=== PATIENT | female | born 1965 | race Caucasian/White ===

== ENCOUNTER → 2019-01-11 | Outpatient (REF) | payer OTHER | LOC: M LAB REF 13:39 | PROVIDERS: ATTEND Obstetrics & Gynecology | DX: R10.2 Pelvic and perineal pain (principal) ==

== ENCOUNTER 2019-02-16 05:48 | Day surgery (SDC) | payer OTHER ==
[~2019-02-16] VITALS: Ht 165.1 cm; Wt 107.7 kg
[2019-02-16] VITALS (8 sets, daily range): BP systolic 114–147; BP diastolic 61–77
[~2019-02-16 05:48] MED LIST: LEVO50TA5 PO
[2019-02-16] MEDS: LEVOTHYROXINE 100MCG TABLET (0.1MG) PO SCH (06:00)
[2019-02-16] MEDS ORDERED: LR 1,000 ML IV ONE (06:00)
[2019-02-16 06:19] LABS: HEMOGLOBIN 14.3 g/dl (12.0-15.5); MEAN CORPUSCULAR HEMOGLOBIN 32.1 pg (27.0-33.0); MEAN CORPUSCULAR HGB CONC 33.3 g/dl (32.0-36.5); MEAN CORPUSCULAR VOLUME 96.6 fl (80.0-96.0); PLATELET COUNT, AUTOMATED 258 10^3/uL (150-450); RED BLOOD COUNT 4.45 10^6/uL (4.00-5.40); WHITE BLOOD COUNT 6.6 10^3/uL (4.0-10.0)
[2019-02-16 06:47] LABS: HCG, SERUM QUALITATIVE NEGATIVE (NEGATIVE)
[2019-02-16] MEDS ORDERED: BUPIVACAINE HCL 0.25% 30 ML VIAL As Ordered ONE (07:08)
[2019-02-16] MEDS ORDERED: METHYLENE BLUE 0.5% (5MG/ML) 10 ML AMP (PROVAYBLUE)(Q9968 PER 1MG) As Ordered ONE (07:08)
[2019-02-16] MEDS ORDERED: ROCURONIUM BROMIDE 50 MG/5 ML VIAL As Ordered ONE ×2 (07:11→08:10)
[2019-02-16] MEDS ORDERED: ONDANSETRON 4MG/2ML VIAL (J2405) As Ordered ONE (07:11)
[2019-02-16] MEDS ORDERED: LIDOCAINE 2% INJ 100 MG/5 ML SDV (FOR ANES.) As Ordered ONE (07:11)
[2019-02-16] MEDS ORDERED: PROPOFOL 200 MG/20 ML VIAL As Ordered ONE (07:11)
[2019-02-16] MEDS ORDERED: dexameTHASONE 4 MG/ML 1ML VIAL (J1100) As Ordered ONE (07:11)
[2019-02-16] MEDS ORDERED: MIDAZOLAM INJ 2 MG/2 ML VIAL (J2250) As Ordered ONE (07:12)
[2019-02-16] MEDS ORDERED: fentaNYL 100 MCG/2 ML INJECTION (J3010) As Ordered ONE (07:12)
[2019-02-16] MEDS ORDERED: HYDROmorphone HCL 2 MG/ML 1ML VIAL (J1170) As Ordered ONE (07:17)
[2019-02-16] MEDS ORDERED: KETAMINE HCL 200 MG/20 ML VIAL As Ordered ONE (08:36)
[2019-02-16] MEDS ORDERED: KETOROLAC 60 MG/2 ML VIAL (J1885) As Ordered ONE (08:40)
[2019-02-16] MEDS ORDERED: SUGAMMADEX SODIUM 500 MG/5 ML VIAL (BRIDION) As Ordered ONE (08:40)
[2019-02-16] MEDS ORDERED: ACETAMINOPHEN 1000MG 100ML IV BTL (OFIRMEV) (J0131 PER 10MG) As Ordered ONE (09:13)
[2019-02-16] MEDS ORDERED: BACITRACIN OINT 30GM As Ordered ONE (09:48)
[2019-02-16] MEDS: LR 1,000 ML IV SCH ×2 (10:03→18:03)
[2019-02-16] MEDS ORDERED: PERCOCET 5MG/325MG TAB PO PRN ×3 (10:15→10:30)
[2019-02-16] MEDS ORDERED: PROMETHAZINE INJ 25 MG/ML VIAL (J2550) IV PRN (10:15)
[2019-02-16] MEDS ORDERED: ONDANSETRON 4MG/2ML VIAL (J2405) IV PRN ×2 (10:15→10:30)
[2019-02-16] MEDS ORDERED: HYDROMORPHONE HCL 0.5 MG/ 0.5 ML SYRINGE (J1170 PER 1) IV PRN (10:30)
[2019-02-16] MEDS ORDERED: fentaNYL 100 MCG/2 ML INJECTION (J3010) IV PRN (10:30)
[2019-02-16] MEDS ORDERED: LR 1,000 ML IV SCH (10:30)
[2019-02-16] MEDS: DOCUSATE SODIUM 100 MG CAP PO SCH ×2 (12:13→20:25)
[2019-02-16] MEDS: KETOROLAC 30 MG/ML VIAL (J1885) IV SCH ×2 (14:45→20:24)
[2019-02-17] VITALS: BP 99/51
[2019-02-17] MEDS: KETOROLAC 30 MG/ML VIAL (J1885) IV SCH (02:23)
[2019-02-17 04:00] VITALS: BP 114/61
[2019-02-17] MEDS: LEVOTHYROXINE 100MCG TABLET (0.1MG) PO SCH (05:39)
[2019-02-17 06:21] LABS: BASO % 0.1 % (0.0-1.0); HEMATOCRIT 38.7 % (36.0-47.0); HEMOGLOBIN 12.9 g/dl (12.0-15.5); LYMPH # 1.2 10^3/uL (1.5-4.5); LYMPH % 8.8 % (24.0-44.0); MEAN CORPUSCULAR HEMOGLOBIN 31.9 pg (27.0-33.0); MEAN CORPUSCULAR HGB CONC 33.3 g/dl (32.0-36.5); MEAN CORPUSCULAR VOLUME 95.8 fl (80.0-96.0); NEUTROPHILS # 11.7 10^3/uL (1.8-7.7); NEUTROPHILS % 83.6 % (36.0-66.0); PLATELET COUNT, AUTOMATED 245 10^3/uL (150-450); RED BLOOD COUNT 4.04 10^6/uL (4.00-5.40)
[2019-02-17 08:00] VITALS: BP 122/61
[2019-02-17] MEDS: DOCUSATE SODIUM 100 MG CAP PO SCH (08:02)
[2019-02-17] MEDS ORDERED: IBUP80TA PO (10:23)
[2019-02-17] MEDS ORDERED: PERCOCET PO (10:23)
[2019-02-17] MEDS ORDERED: COLA100C5 PO (10:23)
[2019-02-17] MEDS ORDERED: IBUPROFEN 800 MG TAB PO SCH (11:00)
== END 2019-02-17 10:55 | disposition home or self-care (01) ==
LOC: M SDC 05:48 → M PED 11:10 → M SDC 02-17 10:55
PROVIDERS: ATTEND Obstetrics & Gynecology
DX: R10.2 Pelvic and perineal pain (principal); N72 Inflammatory disease of cervix uteri; D25.1 Intramural leiomyoma of uterus; D25.2 Subserosal leiomyoma of uterus; N80.0 Endometriosis of uterus; G47.30 Sleep apnea, unspecified; E03.9 Hypothyroidism, unspecified; Z79.899 Other long term (current) drug therapy
CPT/HCPCS: 36415; 58571; 84703; 85025; 85027; 86850; 86900; 86901; 88307; 96374; 96376; J0131; J0690; J1100; J1170; J1885; J2250; J2405; J3010; Q9968

== ENCOUNTER 2019-04-29 07:31 | Emergency (ER) | payer OTHER ==
[~2019-04-29] VITALS: Ht 165.1 cm; Wt 106.8 kg
[~2019-04-29 07:31] MED LIST changes: +COLA100C5 PO; +IBUP80TA PO; +PERCOCET PO
--- NOTE | 2019-04-29 08:09 | REPVR ---
PROCEDURE INFORMATION: Exam: CT Head Without Contrast Exam date and time: 04/29/2019 7:40 AM Clinical history: 53 years old, female; Injury or trauma; Fall; Initial encounter; Blunt trauma (contusions or hematomas) TECHNIQUE: Imaging protocol: Computed tomography of the head without contrast. Radiation optimization: All CT scans at this facility use at least one of these dose optimization techniques: automated exposure control; mA and/or kV adjustment per patient size (includes targeted exams where dose is matched to clinical indication); or iterative reconstruction. COMPARISON: No relevant prior studies available. FINDINGS: Brain: Normal. No hemorrhage. Unremarkable white matter. No mass effect. Ventricles: Normal. No ventriculomegaly. Bones/joints: See Soft Tissues Finding. Sinuses: Visualized sinuses are unremarkable. No fluid levels. Mastoid air cells: Visualized mastoid air cells are well aerated. Soft tissues: There is a left posterior parietal scalp hematoma. There is no underlying fracture. IMPRESSION: No acute intracranial findings identified. Please refer to incidental findings in body of report. Electronically signed by: Daniel Weiner On 04/29/2019 08:09:17 AM
[2019-04-29] MEDS ORDERED: ACETAMINOPHEN 325 MG TAB PO ONE (08:30)
[2019-04-29 08:48] VITALS: BP 170/84
== END 2019-04-29 08:48 | disposition home or self-care (01) ==
LOC: M ED 07:31
DX: S09.90XA Unspecified injury of head, initial encounter (principal); W00.9XXA Unspecified fall due to ice and snow, initial encounter; Y92.9 Unspecified place or not applicable; Y93.9 Activity, unspecified; Y99.9 Unspecified external cause status; Z79.899 Other long term (current) drug therapy

== ENCOUNTER 2019-05-03 10:51 | Emergency (ER) | payer OTHER ==
[~2019-05-03] VITALS: Ht 165.1 cm; Wt 110.1 kg
[2019-05-03 10:51] VITALS: BP 138/92
[2019-05-03] MEDS ORDERED: tylenol 2 tabs (10:57)
== END 2019-05-03 11:54 | disposition home or self-care (01) ==
LOC: M ED 10:51
DX: F07.81 Postconcussional syndrome (principal); E03.9 Hypothyroidism, unspecified; Z79.899 Other long term (current) drug therapy

== ENCOUNTER → 2019-12-01 | Outpatient (REF) | payer OTHER ==
[~2019-12-01] MED LIST changes: +tylenol 2 tabs
== END ==
LOC: M LAB REF 12:43
PROVIDERS: ATTEND Surgery
DX: S67.192D Crushing injury of right middle finger, subsequent encounter (principal); W18.30XD Fall on same level, unspecified, subsequent encounter; Y92.9 Unspecified place or not applicable